=== PATIENT | female | born 1980 | race African-American/Black ===

== ENCOUNTER 2017-12-29 11:55 | Emergency (ER) | payer SELFPAY ==
[~2017-12-29] VITALS: Ht 154.9 cm; Wt 78.9 kg
[2017-12-29 12:32] VITALS: BP_SYST 146
[2017-12-29 14:52] VITALS: BP_SYST 137
== END 2017-12-29 14:52 | disposition home or self-care (01) ==
LOC: SED 11:55
DX: J34.89 Other specified disorders of nose and nasal sinuses (principal); I10 Essential (primary) hypertension; Z88.0 Allergy status to penicillin
CPT/HCPCS: 99283

== ENCOUNTER 2018-12-15 13:00 | Emergency (ER) | payer MEDICAID ==
[~2018-12-15] VITALS: Ht 154.9 cm; Wt 77.6 kg
[2018-12-15 13:12] VITALS: BP_SYST 160
[2018-12-15 14:38] VITALS: BP_SYST 139
== END 2018-12-15 14:38 | disposition home or self-care (01) ==
LOC: SED 13:00
DX: H10.9 Unspecified conjunctivitis (principal); I10 Essential (primary) hypertension; Z90.49 Acquired absence of other specified parts of digestive tract; Z88.0 Allergy status to penicillin; Z88.1 Allergy status to other antibiotic agents
CPT/HCPCS: 99282; 99283

== ENCOUNTER 2019-07-08 13:13 | Emergency (ER) | payer MEDICAID ==
[~2019-07-08] VITALS: Ht 154.9 cm; Wt 77.1 kg
[2019-07-08 13:21] VITALS: BP_SYST 151
--- NOTE | 2019-07-08 13:51 | NUR ---
Patient to ER bed 03 to gown for evaluation. Side rails up.
--- NOTE | 2019-07-08 14:01 | NUR ---
pt arrives from home with c/o cough and neck pain. VSS. Pt is currently afebrile. No c/o SOB at the moment. Will continue to monitor.
--- NOTE | 2019-07-08 14:15 | NUR ---
BRIONNA Patel PAC at bedside examining patient.
--- NOTE | 2019-07-08 14:38 | NUR ---
Patient given written and verbal discharge instructions and verbalizes understanding. ER MD discussed with patient the results and treatment provided. Patient in stable condition. ID arm band removed.Rx of Promehtazine and Macrobid given. Patient educated on pain management and to follow up with PMD. Pain Scale 3/10.Opportunity for questions provided and answered. Medication side effect fact sheet provided.
[2019-07-08 14:39] VITALS: BP_SYST 151
== END 2019-07-08 14:38 | disposition home or self-care (01) ==
LOC: SED 13:13
DX: G44.209 Tension-type headache, unspecified, not intractable (principal); J06.9 Acute upper respiratory infection, unspecified; N39.0 Urinary tract infection, site not specified; I10 Essential (primary) hypertension; Z90.49 Acquired absence of other specified parts of digestive tract; Z88.0 Allergy status to penicillin; Z88.1 Allergy status to other antibiotic agents
CPT/HCPCS: 99283

== ENCOUNTER 2019-09-12 18:05 | Emergency (ER) | payer OTHER, MEDICAID ==
[~2019-09-12] VITALS: Ht 162.6 cm; Wt 79.4 kg
[2019-09-12 18:05] VITALS: BP_SYST 162
--- NOTE | 2019-09-12 18:05 | NUR ---
BROUGHT BACK TO BED #2 AND REPORT GIVEN TO GLORY
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
--- NOTE | 2019-09-12 18:35 | NUR ---
ER Dr. Garcia at bedside examining patient.
[2019-09-12 18:45] VITALS: BP_SYST 159
--- NOTE | 2019-09-12 18:45 | NUR ---
Patient given written and verbal discharge instructions and verbalizes understanding. ER MD discussed with patient the results and treatment provided. Patient in stable condition. ID arm band removed. Rx of Tramadol & naproxen given. Patient educated on pain management and to follow up with PMD. Pain Scale 8/10 tolerable for patient. Opportunity for questions provided and answered.
== END 2019-09-12 18:45 | disposition home or self-care (01) ==
LOC: SED 18:05
DX: S29.012A Strain of muscle and tendon of back wall of thorax, initial encounter (principal); I10 Essential (primary) hypertension; Z88.0 Allergy status to penicillin; Z88.1 Allergy status to other antibiotic agents; V89.2XXA Person injured in unspecified motor-vehicle accident, traffic, initial encounter; Y93.89 Activity, other specified; Y92.413 State road as the place of occurrence of the external cause; Y99.8 Other external cause status
CPT/HCPCS: 99283

== ENCOUNTER 2019-09-28 19:11 | Emergency (ER) | payer MEDICAID ==
[~2019-09-28] VITALS: Ht 154.9 cm; Wt 79.4 kg
[2019-09-28 19:15] VITALS: BP_SYST 156
--- NOTE | 2019-09-28 19:16 | NUR ---
Patient to ER bed 7 to gown for evaluation. Side rails up. Report given to OSVALDO GONSALVES.
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
--- NOTE | 2019-09-28 19:43 | NUR ---
ER Dr. Betancourt at bedside examining patient.
--- NOTE | 2019-09-28 20:30 | NUR ---
Assisted pt to restroom to void. Collected urine. HCG test performed. Urine sent to lab.
[2019-09-28 20:43] LABS: BILIRUBIN,URINE NEGATIVE (NEGATIVE); BLOOD, URINE NEGATIVE (NEGATIVE); CLARITY/URINE CLEAR (CLEAR); COLOR,URINE YELLOW (YELLOW); GLUCOSE,URINE NEGATIVE (NEGATIVE); KETONES,URINE NEGATIVE (NEGATIVE); LEUKOCYTE ESTERASE ,URINE NEGATIVE (NEGATIVE); NITRITE, URINE NEGATIVE (NEGATIVE); PROTEIN URINE NEGATIVE (NEGATIVE); UROBILINOGEN,URINE 0.2 (0.2-1.0)
--- NOTE | 2019-09-28 22:02 | NUR ---
ER Dr. Betancourt at bedside explaining results to patient.
--- NOTE | 2019-09-28 22:04 | NUR ---
BP taken. BP is 161/118. Pt states will take Losartan medication right now. Dr. Betancourt made aware. Water provided.
--- NOTE | 2019-09-28 22:20 | NUR ---
Rechecked blood pressure 170/110. Dr. Betancourt notified and ordered medication.
--- NOTE | 2019-09-28 22:28 | NUR ---
Patient refuses medication. Pt states "I am scared to if my blood pressure goes low." Pt educated on blood pressure medication and risks of high blood pressure. Pt wanted to leave AMA. Dr. Betancourt made aware.
[2019-09-28] MEDS ORDERED: cloNIDine HCL 0.1 MG TABLET PO ONE (22:30)
--- NOTE | 2019-09-28 22:40 | NUR ---
Charge nurse at bedside speaking to patient in regards to medication administration. Pt wants to leave AMA.
--- NOTE | 2019-09-28 22:45 | NUR ---
Pt walked out AMA refusing to sign AMA form and refused to let nurse remove wristband. Pt states "Fuck you. I am not signing anything. You will hear from me." Pt left ER by ambulation with steady gait upset.
== END 2019-09-28 22:45 | disposition left against medical advice (07) ==
LOC: SED 19:11
DX: S33.5XXA Sprain of ligaments of lumbar spine, initial encounter (principal); S13.4XXA Sprain of ligaments of cervical spine, initial encounter; Z88.0 Allergy status to penicillin; Z88.1 Allergy status to other antibiotic agents; V89.2XXA Person injured in unspecified motor-vehicle accident, traffic, initial encounter; Y93.89 Activity, other specified; Y92.89 Other specified places as the place of occurrence of the external cause; Y99.8 Other external cause status
CPT/HCPCS: 72125-TC; 72131; 81003; 81025; 99284